=== PATIENT | female | born 1945 | race Caucasian/White ===

== ENCOUNTER → 2023-08-02 08:24 | Outpatient (REF) | payer MEDICARE, OTHER, SELFPAY | LOC: HWRAD 08:24 | PROVIDERS: ATTENDING PHYSICIAN Internal Medicine Cardiovascular Disease; FAMILY PHYSICIAN Family Medicine | DX: I65.23 Occlusion and stenosis of bilateral carotid arteries (principal); Z92.3 Personal history of irradiation | CPT/HCPCS: 93880 ==